=== PATIENT | female | born 1955 | race Caucasian/White ===

== ENCOUNTER → 2016-12-29 | Outpatient (CLI) | payer OTHER ==
[~2016-12-29] MED LIST: IBUP-1428 PO; PANT40TA PO; osteobiflex
[2016-12-29 13:00] LABS: ESTIMATED AVERAGE GLUCOSE 103 mg/dl; HA1C FLAG Normal (Normal)
[2016-12-29 13:01] LABS: HEMATOCRIT 41.8 % (37-47); MEAN CELL VOLUME 89.9 fL (80-100); MEAN CORPUSCULAR HGB CONC 34.4 g/dl (32-36); MEAN PLATELET VOLUME 9.5 fL (7.4-10.4); PLATELET COUNT 209 K/uL (130-400); RED BLOOD COUNT 4.65 M/uL (4.2-5.4); WHITE BLOOD COUNT 4.38 K/uL (4.8-10.8)
[2016-12-29 13:10] LABS: BLOOD UREA NITROGEN 18 mg/dl (7-18); BUN/CREATININE RATIO 23.4 (10-20); CALCIUM 8.7 mg/dl (8.5-10.1); CARBON DIOXIDE 26 mmol/L (21-32); CHLORIDE 108 mmol/L (98-107); CREATININE 0.75 mg/dl (0.60-1.20); GLUCOSE 83 mg/dl (70-99); POTASSIUM 4.2 mmol/L (3.5-5.1); SODIUM 140 mmol/L (136-145)
[2016-12-29 13:14] LABS: CHOLESTEROL 223 mg/dl (0-200); CHOLESTEROL/HDL RATIO 3.7; HDL CHOLESTEROL 61 mg/dl; LDL CHOLESTEROL CALCULATED 148 mg/dl; RHEUMATOID FACTOR < 10.0 U/mL (0-15); TRIGLYCERIDES 71 mg/dl (0-150); VERY LOW DENSITY LIPOPROT CALC 14 mg/dl
[2016-12-29 13:33] LABS: LYME DISEASE AB IGM NEG (NEG)
[2016-12-29 13:36] LABS: LYME DISEASE AB IGG NEG (NEG)
== END | disposition home or self-care (01) ==
LOC: C.LABPBG 10:16
PROVIDERS: ATTEND Family Medicine
DX: I10 Essential (primary) hypertension (principal); M25.571 Pain in right ankle and joints of right foot; E66.9 Obesity, unspecified; Z68.42 Body mass index [BMI] 45.0-49.9, adult; Z13.220 Encounter for screening for lipoid disorders